=== PATIENT | male | born 1995 | race Caucasian/White ===

== ENCOUNTER 2018-09-23 13:40 | Emergency (ER) | payer MEDICAID, SELFPAY ==
[2018-09-23 13:45] VITALS: BP 119/79; PULSE 67; RESP 18; TEMP 36.7; O2SAT 97
--- NOTE | 2018-09-23 13:45 | ED.GENADUL_ITS ---
Discharge Plan Disposition Patient Disposition: HOME Condition: Stable Discharge Details Chief Complaint: Orthopedic Clinical Impression: Right wrist sprain Primary Care Provider: Collins Sandoval ED Provider: Turner Burrows Home Meds and New Rx's Prescriptions: Continued epinephrine [EpiPen 2-Erik] 0.3 MG/0.3 ML auto-injector 0.3 mg IM ONCE Qty: 1 RF: 0 ProAir HFA 8.5 GM HFA aerosol inhaler 2 puff Inhalation Q4H PRN Qty: 2 RF: 2 inhalational spacing device [Space Chamber Plus] 1 EACH spacer 1 ea Miscellaneous Q4H PRN Qty: 1 RF: 0 Discharge Instructions Instructions: Wrist Sprain (ED) Additional Instructions: if pain continues in a week see a primary care provider Stand Alone Forms: Work Release Medical Decision Making 23 yo male states he strained his right wrist by hyperextending it while lifting it 2 weeks ago. He was at work yesterday and caught a box and caused more pain to the right wrist. Denies any falls or other trauma. His work told him he needed a note to return to work so he came here. He has full rom of the wrist with anterior discomfort, no swelling, normal sensation, no snuffbox tenderness. I suspect strain, given lack of trauma and full rom doubt fx and do not feel xray indicated. Will give splint to use prn and advised no heavy lifting until pain free and if not better in a week to see a pcp Differential Diagnosis strain, sprain, contusion HPI General Mode of arrival: ambulatory . Date/Time Provider Initiated Documentation: 09/23/18 13:41 . Limitations to Documentation: no limitations . Information obtained by: patient . History of Present Illness 23 year old M presents to the emergency department with the chief complaint of right wrist pain, described as mild, with intensity rated at 4. Quality is described as aching, and is localized to the right and upper extremity. Patient reports no radiation. Patient started experiencing this week(s) (2) and it has been constant. Rest improves symptom(s), Movement worsens symptoms . Patient notes no other symptoms.. Related Data Home Medications Medication Instructions Recorded Confirmed epinephrine [EpiPen 2-Erik] 0.3 mg IM ONCE #1 pack 06/21/15 09/23/18 ProAir HFA 2 puff INHALATION Q4H PRN #2 07/01/15 09/23/18 inhaler inhalational spacing device [Space #1 07/01/15 Chamber Plus] Allergies Allergy/AdvReac Type Severity Reaction Status Date / Time venom-honey bee Allergy Intermediate Unverified 09/23/18 13:50 [bee venom (honey bee)] Review of Systems Review of Systems All systems reviewed & are unremarkable except as noted in HPI and below Constitutional Denies chills, Denies fever(s) and Denies weakness ENT Denies change in voice Cardiovascular Denies chest pain and Denies dyspnea Respiratory Denies dyspnea Gastrointestinal Denies abdominal pain, Denies nausea and Denies vomiting Genitourinary Denies dysuria Musculoskeletal Denies joint swelling Neurologic Denies weakness Psychiatric Denies depression [facility] Medical History Concussion Intermittent asthma MRSA (methicillin resistant Staphylococcus aureus) Mononucleosis Surgical History Excision, Skin Mass (~03/2009) Repair, Incomplete Circumcision Family History Mother Migraine Mental disorder Asthma Brother Mental disorder Other Lupus (systemic lupus erythematosus) Substance abuse Diabetes Alcohol abuse Essential hypertension Personal history of malignant neoplasm Heart disease Mental disorder Asthma Social History Smoking/Tobacco Use Status: Never Exam Const General: no acute distress Orientation: alert HENVA Head: normal to inspection Ears: external ears normal General nose exam: external nose normal Mouth: moist mucous membranes Eyes General: appearance normal, both eyes and all related structures Neck Neck: normal visual inspection Resp Effort & Inspection: normal respiratory effort and able to speak in complete sentences Cardio Rate: regular rate Skin General skin exam: no rashes or lesions noted Neuro General: alert and oriented x3 Extrem General: normal to inspection, full ROM and normal capillary refill Psych Mental Status: mental status grossly normal
== END 2018-09-23 14:20 | disposition home or self-care (01) ==
PROVIDERS: Emergency Provider Emergency Medicine; PCP Pediatrics
DX: S63.501A Unspecified sprain of right wrist, initial encounter (principal); X50.0XXA Overexertion from strenuous movement or load, initial encounter; Y93.B1 Activity, exercise machines primarily for muscle strengthening
CPT/HCPCS: 29125; 99283; 99282; L3908

== ENCOUNTER 2018-10-10 07:09 | Emergency (ER) | payer MEDICAID, SELFPAY ==
[2018-10-10 07:14] VITALS: BP 116/73; PULSE 61; RESP 18; TEMP 36.4; O2SAT 97
--- NOTE | 2018-10-10 08:14 | ED.GENADUL_ITS ---
Discharge Plan Disposition Patient Disposition: HOME Condition: Stable Discharge Details Chief Complaint: Orthopedic Clinical Impression: Right wrist sprain Primary Care Provider: Collins Sandoval ED Provider: Morena Ahn Home Meds and New Rx's Prescriptions: Continued epinephrine [EpiPen 2-Erik] 0.3 MG/0.3 ML auto-injector 0.3 mg IM ONCE Qty: 1 RF: 0 ProAir HFA 8.5 GM HFA aerosol inhaler 2 puff Inhalation Q4H PRN Qty: 2 RF: 2 inhalational spacing device [Space Chamber Plus] 1 EACH spacer 1 ea Miscellaneous Q4H PRN Qty: 1 RF: 0 Discharge Instructions Instructions: Wrist Sprain (ED) Additional Instructions: Rest, ice, and elevate right wrist is much as possible. Alternate Tylenol and Motrin as needed and directed for pain. Wear your wrist splint that you have at home as directed. Follow-up with your primary care doctor in 1 week for reevaluation as needed. Return to the emergency department any worsening or new concerning symptoms. Follow-up with orthopedics if your pain persists or worsens. Stand Alone Forms: Work Release Referrals: Polo Sherman MD [ [facility] STAFF PHYSICIAN] - Discharge Data Discharge Date/Time-TO BE ENTERED AT DEPARTURE: 10/10/18 08:22 Discharge Physician: Morena Ahn Medical Decision Making 23-year-old male who presents with right wrist pain after feeling a pop while pushing a box at work this morning. Patient works at [employer]. Pt has not taken anything for pain. Seen here 2 weeks ago for a R wrist sprain and states his symptoms completely resolved until new injury today. Did not receive xray at that time. Some pain with ROM but no deformity. Minimal tenderness to palpation R volar medial wrist. NV intact. No ecchymoses, edema, erythema. Pt offered motrin and xray but declined. Pt states he needs a work note. Pt advised to rest, ice, and elevate R wrist as much as possible. Pt given orthopedic follow up info if needed. Pt also referred to care management for a primary care doctor. Pt instructed to return here with any concerns. HPI General Mode of arrival: ambulatory . Date/Time Provider Initiated Documentation: 10/10/18 08:04 . Limitations to Documentation: no limitations . Information obtained by: patient . HPI Narrative: Patient is a 23-year-old male who presents with right wrist pain after pushing a box with his right hand and feeling a pop in his right ulnar wrist. Pt states he felt pain radiate from his R wrist up his R medial forearm. Patient has not yet taken anything for pain. Patient was seen here a couple weeks ago for a right wrist pain after hyperextending his wrist at work. Pt was seen in the ED at that time and was diagnosed with R wrist sprain and was discharged to home. Pt did not receive an xray at that time as not indicated by provider. Pt states his pain completely improved since then until new injury today. Pt denies any numbness or weakness. Related Data Home Medications Medication Instructions Recorded Confirmed epinephrine [EpiPen 2-Erik] 0.3 mg IM ONCE #1 pack 06/21/15 09/23/18 ProAir HFA 2 puff INHALATION Q4H PRN #2 07/01/15 09/23/18 inhaler inhalational spacing device [Space #1 07/01/15 Chamber Plus] Allergies Allergy/AdvReac Type Severity Reaction Status Date / Time venom-honey bee Allergy Intermediate Unverified 09/23/18 13:50 [bee venom (honey bee)] General Stated Complaint: Orthopedic FLORIDALMA: 4 Review of Systems Review of Systems All systems reviewed & are unremarkable except as noted in HPI and below PFSH Medical History Concussion Intermittent asthma MRSA (methicillin resistant Staphylococcus aureus) Mononucleosis Surgical History Excision, Skin Mass (~03/2009) Repair, Incomplete Circumcision Family History Mother Migraine Mental disorder Asthma Brother Mental disorder Other Lupus (systemic lupus erythematosus) Substance abuse Diabetes Alcohol abuse Essential hypertension Personal history of malignant neoplasm Heart disease Mental disorder Asthma Social History Smoking/Tobacco Use Status: Never alcohol intake: never substance use type: does not use Exam Const General: cooperative, healthy appearing and no acute distress HENMT Head: normal to inspection Mouth: oral mucosae normal Eyes General: appearance normal, both eyes and all related structures Neck Neck: normal visual inspection Resp Effort & Inspection: normal respiratory effort and able to speak in complete sentences Cardio Rate: regular rate Skin General skin exam: no rashes or lesions noted Neuro General: alert, awake and oriented x3 Motor: muscle tone normal throughout Extrem General: normal to inspection and full ROM Right upper extremity: wrist Details: normal to inspection, tenderness (minimal on R volar ulnar wrist. No R snuff box tenderness ), abnormal ROM Details: pain with active ROM during Details: with extension and with flexion, radial pulse present Details: 2+ and ulnar pulse present Details: 2+; no swelling, no unusual warmth, no abrasions, no ecchymosis, no crepitus and no deformity Psych Appearance: grossly normal Affect: normal affect Course Vital Signs Temperature 97.5 F L 10/10/18 07:14 Pulse 61 10/10/18 07:14 Respiratory Rate 18 10/10/18 07:14 Blood Pressure 116/73 10/10/18 07:14 Pulse Oximetry 97 10/10/18 07:14 Temperature 97.5 F L 10/10/18 07:14 Temperature Source Temporal Artery Scan 10/10/18 07:14 Pulse 61 10/10/18 07:14 Respiratory Rate 18 10/10/18 07:14 Respiratory Effort Non-Labored 10/10/18 07:14 Blood Pressure 116/73 10/10/18 07:14 Pulse Oximetry 97 10/10/18 07:14 Oxygen Delivery Method Room Air 10/10/18 07:14 Oxygen Flow Rate 0 10/10/18 07:14
== END 2018-10-10 08:22 | disposition home or self-care (01) ==
PROVIDERS: Emergency Provider Physician Assistant; PCP Pediatrics
DX: S63.501A Unspecified sprain of right wrist, initial encounter (principal); X50.9XXA Other and unspecified overexertion or strenuous movements or postures, initial encounter; Y99.0 Civilian activity done for income or pay
CPT/HCPCS: 99282

== ENCOUNTER 2019-11-16 14:33 | Emergency (ER) | payer MEDICAID, SELFPAY ==
[2019-11-16 14:37] VITALS: BP 132/76; PULSE 66; RESP 18; TEMP 36.6; O2SAT 96
--- NOTE | 2019-11-16 14:50 | ED.GENADUL_ITS ---
Discharge Plan Disposition Patient Disposition: HOME Condition: Improving Discharge Details Chief Complaint: Headache Clinical Impression: Headache, migraine Primary Care Provider: Collins Sandoval ED Provider: Leonardo Medeiros Home Meds and New Rx's Prescriptions: Continued epinephrine [EpiPen 2-Erik] 0.3 MG/0.3 ML auto-injector 0.3 mg IM ONCE Qty: 1 RF: 0 albuterol sulfate [ProAir HFA] 8.5 GM HFA aerosol inhaler 2 puff Inhalation Q4H PRN Qty: 2 RF: 2 (DME) inhalational spacing device [Space Chamber Plus] 1 EACH spacer 1 ea Miscellaneous Q4H PRN Qty: 1 RF: 0 Discharge Instructions Instructions: Migraine Headache (ED) Additional Instructions: Home to rest today. All, frequent sips of fluids so that you maintain hydration. You may use Tylenol 650 to 1000 mg every 6 hours, and/or ibuprofen 600 mg every 6-8 hours as needed for pain. Return if you develop a fever, vomiting, worsening headache or any other acute concerns. Stand Alone Forms: Work Release Medical Decision Making 24-year-old male with a history of migraine headache states he has had 3 headaches in 2 days time. Denies fall, injury, illness. He is well-appearing, his vital signs are normal, neurologic exam unremarkable. Patient was given 1 L fluid bolus, ketorolac and dexamethasone with near complete resolution of his headache. We discussed ongoing management techniques in an outpatient setting. He is stable and improved,. Discharge home. HPI General Mode of arrival: ambulatory . Date/Time Provider Initiated Documentation: 11/16/19 14:34 . Limitations to Documentation: no limitations . Information obtained by: patient . History of Present Illness 24 year old M presents to the emergency department with the chief complaint of Multiple headaches over 2 days, described as moderate and similar to prior episodes, Quality is described as dull and constant, and is localized to the head. Patient reports no radiation. Patient started experiencing this day(s) and it has been constant. No relieving factors improve symptom(s), No exace rbating factors reported . Patient notes headaches; denies fever/chills, loss of appetite, nausea/vomiting and syncope. Patient did receive the following treatments prior to arrival, none Related Data Home Medications Medication Instructions Recorded Confirmed epinephrine [EpiPen 2-Erik] 0.3 mg IM ONCE #1 pack 06/21/15 11/16/19 albuterol sulfate [ProAir HFA] 2 puff INHALATION Q4H PRN #2 07/01/15 11/16/19 inhaler inhalational spacing device [Space #1 07/01/15 Chamber Plus] Allergies Allergy/AdvReac Type Severity Reaction Status Date / Time venom-honey bee Allergy Intermediate Unverified 11/16/19 14:40 [bee venom (honey bee)] General Stated Complaint: Headache FLORIDALMA: 3 Review of Systems Narrative: No fall, no recent illness, denies neck pain or fever. 6 systems reviewed and otherwise negative [facility] Medical History Concussion no LOC Intermittent asthma Mononucleosis MRSA (methicillin resistant Staphylococcus aureus) Family History Mother Migraine Mental disorder anxiety/depression Asthma Brother Mental disorder anxiety/depression Other Lupus (systemic lupus erythematosus) mat cousin Substance abuse mat and pat sides Diabetes MGF, MGM, paternal side also Alcohol abuse mat and pat sides Essential hypertension mat and paternal sides Personal history of malignant neoplasm maternal and paternal Heart disease maternal side Mental disorder MGM-anxiety/depression Asthma MGF, maternal side Social History (Updated 10/10/18 @ 08:38 by Morena Ahn DO) Smoking/Tobacco Use Status: Never Alcohol Intake: never Drug use: Never Substance use type: does not use Do you feel safe in your relationship?: Yes Exam Narrative Exam Narrative: GEN: awake, alert, oriented 3. Pleasant, well groomed, interactive. HEAD: Normocephalic, atraumatic ENT: Mucous membranes moist, oropharynx unremarkable, tympanic membranes clear bilaterally, external ear exam unremarkable EYES: PERRL, EOMI NECK: Full ROM, no DEWEY, no menigismus CHEST/RESP: Nontender, clear to auscultation bilateral, no wheeze/rhonchi/rales CARDIOVASCULAR: RRR, no murmur, rub hubert. 2+ Rad pulse bilateral ABDOMEN: Soft, nontender, no mass. +Bowel sounds EXT: Full ROM, no edema, no rash Neuro: Grossly normal neurologic exam, conversant, interactive. Visual paulino intact to confrontation. Cranial nerves II through XII intact. Gait narrow based with good heel strike Psych: Speech fluent, thoughts congruent, affect normal Course Vital Signs Vital signs: Vital Signs Temperature 36.6 C 11/16/19 14:37 Pulse 66 11/16/19 14:37 Respiratory Rate 18 11/16/19 14:37 Blood Pressure 132/76 11/16/19 14:37 Pulse Oximetry 96 11/16/19 14:37 Temperature 36.6 C 11/16/19 14:37 Pulse 66 11/16/19 14:37 Respiratory Rate 18 11/16/19 14:37 Blood Pressure 132/76 11/16/19 14:37 Blood Pressure Position Sitting 11/16/19 14:37 Pulse Oximetry 96 11/16/19 14:37 Oxygen Delivery Method Room Air 11/16/19 14:37 Oxygen Flow Rate 0 11/16/19 14:37 Pain Level 6 11/16/19 14:37
[2019-11-16] MEDS: Normal Saline 1,000 ML 1000 ML IV (14:57)
[2019-11-16] MEDS: Ondansetron 4 MG/2 ML VIAL IVP (14:59)
[2019-11-16] MEDS: Ketorolac 30 MG/ML VIAL IVP (15:02)
[2019-11-16] MEDS: Dexamethasone 10 MG/ML VIAL IVP (15:03)
[2019-11-16 15:58] VITALS: BP 96/58; PULSE 59; RESP 15; TEMP 36.9; O2SAT 98
== END 2019-11-16 15:57 | disposition home or self-care (01) ==
PROVIDERS: Emergency Provider Emergency Medicine; PCP Pediatrics
DX: G43.809 Other migraine, not intractable, without status migrainosus (principal)
CPT/HCPCS: 96361; 96374; 96375; 99284; J1100; J1885; J2405

== ENCOUNTER 2023-05-23 12:09 | Emergency (ER) | payer MEDICAID, SELFPAY ==
[2023-05-23 12:34] VITALS: BP 123/69; PULSE 64; RESP 14; TEMP 37.1; O2SAT 99
[2023-05-23 15:20] LABS: Bilirubin Negative (Negative); Blood Large (Negative); Clarity Cloudy (Clear); Glucose Negative (Negative); Ketones Negative (Negative); Leukocyte Esterase Large (Negative); Nitrite Positive (Negative); Specific Gravity 1.025 (1.005-1.025); pH 6.5 (5-8)
[2023-05-23 15:28] LABS: Bacteria Many HPF (Negative); C & S Indicated? Yes; Casts Negative LPF (Negative); Crystals Negative HPF (Negative); Epithelial Cells Rare HPF (Negative); Mucus Trace (Negative); WBC >50 HPF (0-5)
[2023-05-23] MEDS: Phenazopyridine 200 MG TAB PO (16:20)
[2023-05-23] MEDS: Cephalexin 500 MG CAP PO (16:20)
[2023-05-24 13:40] LABS: Chlamydia Result Negative (Negative); GC Result Negative (Negative)
--- NOTE | 2023-06-06 16:01 | ED.GENADUL_ITS ---
Discharge Plan Disposition Patient Disposition: Home Condition: Stable Discharge Details Clinical Impression: Acute UTI ED Provider: Tierra Junior Home Meds and New Rx's Prescriptions: New phenazopyridine [Pyridium] 200 mg tablet 200 mg PO TID PRNQty: 6 0RF No Action epinephrine [EpiPen 2-Erik] 0.3 MG/0.3 ML auto-injector 0.3 mg IM ONCE Qty: 1 albuterol sulfate [ProAir HFA] 8.5 GM HFA aerosol inhaler 2 puff Inhalation Q4H PRN Qty: 2 Rx Instructions: 2 puffs with spacer every 4hr as needed (DME) inhalational spacing device [Space Chamber Plus] 1 EACH spacer 1 ea Miscellaneous Q4H PRN Qty: 1 Rx Instructions: give 2 puffs albuterol with spacer every 4hr as needed Discharge Instructions Instructions: Urinary Tract Infection in Men (ED) Stand Alone Forms: Work Release Discharge Data Discharge Date/Time-TO BE ENTERED AT DEPARTURE: 05/23/23 18:15 Discharge Physician: Tierra Junior Medical Decision Making 28 year-old male with urinary symptoms. UA concerning for infection. Discussed possible empiric treatment for STDs. Patient declines at this time. He will be started on antibiotics. Medically he does not appear to have kidney infection at this time. We did discuss indications to return. HPI General Date/Time Provider Initiated Documentation: 05/23/23 12:37 . HPI Narrative: 28-year-old male presents for evaluation of pain with urination. He states that he has had some increased urinary frequency and urgency over the last 3 days. There is some slight dysuria. He has had lower abdominal discomfort. He feels that he may have had a low-grade fever yesterday. He denies any history of UTIs. No history of kidney stones. No kidney pain or back pain. No nausea or vomiting. He is tolerating normal p.o. Denies any concern for sexually transmi tted diseases. He is monogamous with 1 partner. No chest pain or shortness of breath. No cough or cold. Related Data Home Medications Medication Instructions Recorded Confirmed epinephrine 0.3 mg/0.3 mL 0.3 mg IM ONCE ##1 06/21/15 05/23/23 injection, auto-injector (EpiPen 2-Erik) albuterol sulfate 90 mcg/actuation 2 puff inhalation Q4H PRN ##2 07/01/15 05/23/23 aerosol inhaler (ProAir HFA) inhalational spacing device (Space ##1 07/01/15 Chamber Plus) phenazopyridine 200 mg tablet 200 mg PO TID PRN 6 doses #6 tabs 05/23/23 (Pyridium) Previous Rx's Medication Instructions Recorded phenazopyridine 200 mg tablet 200 mg PO TID PRN 6 doses #6 tabs 05/23/23 (Pyridium) Allergies Allergy/AdvReac Type Severity Reaction Status Date / Time venom-honey bee Allergy Intermediate Unverified 05/23/23 12:36 [bee venom (honey bee)] General Stated Complaint: Urinary FLORIDALMA: 3 Review of Systems Narrative: Remainder of review of systems are negative except for as noted in the HPI x 10. PFSH All Active Problems Headache, migraine (Chronic) Acute UTI (Acute) Medical History Concussion no LOC Intermittent asthma Mononucleosis MRSA (methicillin resistant Staphylococcus aureus) Surgical History Excision, Skin Mass (~03/2009) excision atypical spitzoid melanoma Repair, Incomplete Circumcision Family History Mother Migraine Mental disorder anxiety/depression Asthma Brother Mental disorder anxiety/depression Other Lupus (systemic lupus erythematosus) mat cousin Substance abuse mat and pat sides Diabetes MGF, MGM, paternal side also Alcohol abuse mat and pat sides Essential hypertension mat and paternal sides Personal history of malignant neoplasm maternal and paternal Heart disease maternal side Mental disorder MGM-anxiety/depression Asthma MGF, maternal side Social History (Updated 10/10/18 @ 08:38 by Morena Ahn DO) Smoking/Tobacco Use Status: Never Smoking risk assessment performed?: Yes Alcohol Intake: never Drug use: Occasionally Substance use type: marijuana Do you feel safe at home: Yes Do you feel safe in your relationship?: Yes Exam Narrative Exam Narrative: General: Nontoxic, no respiratory distress, comfortable HEENT: Normocephalic, atraumatic, lids and lashes normal, PERRL, EOMI, anicteric sclera, no conjunctival injection, moist oral mucosa Cards: Regular rate and rhythm, S1S2, no murmurs rubs or gallops Lungs: Good air entry, clear to auscultation bilaterally. No wheezes, rales, rhonchi or retractions Abdomen: Soft, nontender, nondistended, normal bowel sounds, no rebound or guarding, no peritoneal signs, no CVAT Musculoskeletal: Full range of motion of arms and legs, no tenderness to palpation. No clubbing, cyanosis, or edema Neurological: Appropriate for age, strength normal Psych: Alert and oriented Skin: No petechiae, no lesions, warm and dry Course Vital Signs Vital signs: Vital Signs Temperature 37.1 C 05/23/23 12:34 Pulse 64 05/23/23 12:34 Respiratory Rate 14 05/23/23 12:34 Blood Pressure 123/69 05/23/23 12:34 Pulse Oximetry 99 05/23/23 12:34 Temperature 37.1 C 05/23/23 12:34 Temperature Source Oral 05/23/23 12:34 Pulse 64 05/23/23 12:34 Respiratory Rate 14 05/23/23 12:34 Respiratory Effort Normal 05/23/23 15:23 Blood Pressure 123/69 05/23/23 12:34 Blood Pressure Position Sitting 05/23/23 12:34 Pulse Oximetry 99 05/23/23 12:34 Oxygen Delivery Method Room Air 05/23/23 12:34 Oxygen Flow Rate 0 05/23/23 12:34 Pain Level 3 05/23/23 12:34 Lab/Test Results Lab/Test Results: 05/23/23 15:00 Urine - Reflex from Ua Urine Culture - Final Escherichia coli Laboratory Tests Range/Units 05/23/23 05/23/23 15:00 15:28 Urine Color (Yellow) Yellow Urine Clarity (Clear) Cloudy Urine pH (5-8) 6.5 Ur Specific [place] (1.005-1.025) 1.025 Urine Protein (Negative) mg/dL >=300 H Urine Ketones (Negative) mg/dL Negative Urine Blood (Negative) Large H Urine Nitrite (Negative) Positive H Urine Bilirubin (Negative) Negative Urine Urobilinogen (Up to 0.2) mg/dL 2.0 H Ur Leukocyte Esterase (Negative) Large H Urine RBC (0-2) HPF 10-20 H Urine WBC (0-5) HPF >50 H Ur Epithelial Cells (Negative) HPF Rare Urine Crystals (Negative) HPF Negative Urine Bacteria (Negative) HPF Many Urine Casts (Negative) LPF Negative Urine Mucus (Negative) Trace Ur Culture Indicated? Yes Urine Glucose (Negative) mg/dL Negative Chlamydia DNA Probe (Negative) Negative Chlamydia/GC DNA Source Not Applicable N.gonorrhoeae DNA Probe (Negative) Negative
== END 2023-05-23 18:15 | disposition home or self-care (01) ==
PROVIDERS: Emergency Provider Emergency Medicine Emergency Medical Services
DX: N39.0 Urinary tract infection, site not specified (principal)
CPT/HCPCS: 87077; 87491; 87591; 99283; 81003; 81015; 87086; 87186; 99284

== ENCOUNTER 2023-06-18 09:18 | Emergency (ER) | payer MEDICAID, SELFPAY ==
[2023-06-18 09:19] VITALS: BP 107/40; PULSE 70; RESP 15; TEMP 36.6; O2SAT 97
--- NOTE | 2023-06-18 09:23 | ED.GENADUL_ITS ---
Discharge Plan Disposition Patient Disposition: Home Discharge Details Clinical Impression: Dysuria, Hematuria, STI (sexually transmitted infection) Primary Care Provider: None,None ED Provider: Sandy Logan Home Meds and New Rx's Prescriptions: New doxycycline hyclate 100 mg tablet 100 mg PO BID Qty: 13 0RF Rx Instructions: Take with food take an txva-mvo-clrwyel probiotic or eat foods with probiotics in them phenazopyridine [Pyridium] 200 mg tablet 200 mg PO TID Qty: 6 0RF No Action epinephrine [EpiPen 2-Erik] 0.3 MG/0.3 ML auto-injector 0.3 mg IM ONCE Qty: 1 albuterol sulfate [ProAir HFA] 8.5 GM HFA aerosol inhaler 2 puff Inhalation Q4H PRN Qty: 2 Rx Instructions: 2 puffs with spacer every 4hr as needed (DME) Space Chamber Plus 1 EACH spacer 1 ea Miscellaneous Q4H PRN Qty: 1 Rx Instructions: give 2 puffs albuterol with spacer every 4hr as needed phenazopyridine [Pyridium] 200 mg tablet 200 mg PO TID PRNQty: 6 0RF Discharge Instructions Instructions: Sexually Transmitted Diseases (ED), Safe Sex Practices (ED), Hematuria (ED), Dysuria (ED) Additional Instructions: 1. You should be contacted by the urologist for follow-up. Tell them that we did send a test for gonorrhea and chlamydia and treated you with a shot and 7 days of doxycycline. Tell them that a culture and urinalysis was also done. 2. Start doxycycline 100 mg every 12 hours for 7 days. We recommend he take an vzit-cos-darbwui probiotic or eat foods with probiotics in them while taking this medication. You should also take it on a full stomach and avoid direct sunlight. 3. Return here for any new or worrisome symptoms such as inability to urinate abdominal pain, fever chills or any concerns. Discharge Data Discharge Date/Time-TO BE ENTERED AT DEPARTURE: 06/18/23 11:45 Discharge Physician: Sandy Logan Medical Decision Making This is a healthy 28-year-old male who was recently treated for UTI with Keflex who presents with dysuria. At his age I am concerned that he could have an STI most likely chlamydia which is the most common STI. He has not had a discharge or lesions and tells me that he has had protected intercourse. My plan is to obtain a urine for GC and chlamydia as well as another urinalysis. If his urine is positive I will treat him for an STI with Rocephin and doxycycline and have him follow-up with urology. He has no evidence of pharyngitis. I have very discussed with him the risk of HIV and hepatitis if he does not fact have an STI. His exam is reassuring. He has no lesions, testicular tenderness or hernias. He has no abdominal pain he is not febrile and appears nontoxic and well. We will likely be discharging him home with outpatient follow-up with urology or primary care Differential Diagnosis Differential Diagnosis: UTI, STI Medical Records Medical records reviewed: Yes I reviewed the patient's medical records. Lab Data Lab results reviewed: Yes I reviewed the patient's lab results. HPI General Date/Time Provider Initiated Documentation: 06/18/23 09:23 . Limitations to Documentation: no limitations . Information obtained by: patient, family, RN notes reviewed and old records reviewed . HPI Narrative: Time seen was 9:32 AM in bed 5. Patient is a 28-year-old male who presents with a chief complaint of recurrent symptoms of a urinary tract infection. In addition, he has also had hematuria which began several days after his symptoms recurred. He tells me he was seen here and treated for UTI. According to old records he was given Keflex. It does not appear that he had a GC or chlamydia done. He did not complete his full course of antibiotics because he left from home when he went away on vacation. He presents now with dysuria, urgency and frequency without fever or chills. Patient denies any prior history of STI. He denies any rash or discharge. He denies any back pain or fever. He tells me that he has a single partner and uses condoms despite the fact that he has been with her for the past 6 years. He endorses some mild discomfort over his bladder which he describes as a warm feeling associated with dysuria, associated with frequency. He tells me he was given Pyridium along with the cephalexin which did help his symptoms. He denies any other aggravating or alleviating factors other than urination aggravates the discomfort. He denies any abdominal pain fever or chills. He denies any testicular pain, swelling or nausea vomiting or diarrhea. He denies any back pain. No numbness tingling or weakness. The patient does not take therapeutic anticoagulants Related Data Home Medications Medication Instructions Recorded Confirmed epinephrine 0.3 mg/0.3 mL 0.3 mg IM ONCE ##1 06/21/06/18/23 injection, auto-injector (EpiPen 2-Erik) albuterol sulfate 90 mcg/actuation 2 puff inhalation Q4H PRN ##2 07/01/06/18/23 aerosol inhaler (ProAir HFA) inhalational spacing device (Space ##1 07/01/06/18/23 Chamber Plus) phenazopyridine 200 mg tablet 200 mg PO TID PRN 6 doses #6 tabs 05/23/23 (Pyridium) doxycycline hyclate 100 mg tablet 100 mg PO BID #13 tabs 06/18/23 phenazopyridine 200 mg tablet 200 mg PO TID 6 doses #6 tabs 06/18/23 (Pyridium) Previous Rx's Medication Instructions Recorded phenazopyridine 200 mg tablet 200 mg PO TID PRN 6 doses #6 tabs 05/23/23 (Pyridium) doxycycline hyclate 100 mg tablet 100 mg PO BID #13 tabs 06/18/23 phenazopyridine 200 mg tablet 200 mg PO TID 6 doses #6 tabs 06/18/23 (Pyridium) Allergies Allergy/AdvReac Type Severity Reaction Status Date / Time venom-honey bee Allergy Intermediate Unverified 06/18/23 09:25 [bee venom (honey bee)] General FLORIDALMA: 3 Review of Systems Narrative: see hpi Genitourinary Genitourinary: Denies hematospermia, Reports hematuria, Denies difficulty urinating, Denies difficulty with ejaculations, Denies genital lesions, Reports dysuria, Denies painful ejaculations, Denies penile discharge, Denies scrotal swelling, Denies testicular mass, Denies testicular pain, Reports urinary frequency and Reports urinary urgency Comments: Patient's symptoms began before the hematuria. It was difficult for him to assess the amount of blood in the urine Hematologic/Lymphatic Hematologic/Lymphatic: Denies easy bleeding, Denies easy bruising and Denies lymphadenopathy Allergic/Immunologic Comments: Per nursing note PFSH All Active Problems (Updated 06/18/23 @ 11:25 by Sandy Logan MD) Headache, migraine (Chronic) Acute UTI (Acute) Dysuria (Acute) Hematuria (Acute) STI (sexually transmitted infection) (Acute) Medical History (Updated 06/18/23 @ 11:25 by Sandy Logan MD) Concussion no LOC Intermittent asthma Mononucleosis MRSA (methicillin resistant Staphylococcus aureus) Surgical History Excision, Skin Mass (~03/2009) excision atypical spitzoid melanoma Repair, Incomplete Circumcision Family History Mother Migraine Mental disorder anxiety/depression Asthma Brother Mental disorder anxiety/depression Other Lupus (systemic lupus erythematosus) mat cousin Substance abuse mat and pat sides Diabetes MGF, MGM, paternal side also Alcohol abuse mat and pat sides Essential hypertension mat and paternal sides Personal history of malignant neoplasm maternal and paternal Heart disease maternal side Mental disorder MGM-anxiety/depression Asthma MGF, maternal side Social History Smoking/Tobacco Use Status: Never Smoking risk assessment performed?: Yes Alcohol Intake: never Drug use: Occasionally Substance use type: marijuana Do you feel safe at home: Yes Do you feel safe in your relationship?: Yes Exam Narrative Exam Narrative: His vital signs are within normal limits for his age Const General: cooperative, healthy appearing, comfortable, no acute distress, well developed, well groomed and well hydrated Nutritional Appearance: average body habitus and well nourished Orientation: alert, awake and oriented x3 HENMT Head: normal to inspection, normocephalic and atraumatic Ears: hearing grossly normal bilaterally and external ears normal General nose exam: external nose normal, nares normal and no nasal discharge Face and sinus: normal facial exam, sinuses nontender and face symmetric Mouth: oral mucosae normal, lip normal, tongue normal, oropharynx normal, moist mucous membranes and other (Normal phonation. The patient is handling secretions.) Throat: posterior oropharynx normal, uvula midline and normal posterior oropharynx Eyes General: appearance normal, both eyes and all related structures Eyelids: eyelids normal Conjunctivae: conjunctivae normal Sclera: sclerae normal Cornea: corneas normal Pupils: PERRL EOM: EOM intact bilaterally and No nystagmus Neck Neck: normal visual inspection, full ROM, no lymphadenopathy, no meningeal signs, trachea midline and supple Lymphatic: no lymphadenopathy noted Chest Chest: normal inspection of the chest Resp Effort & Inspection: normal respiratory effort, able to speak in complete sentences, no audible wheezes, no nasal flaring, no respiratory distress, no retractions, no stridor, not tachypneic, no tracheal deviation, no use of accessory muscles, No prolonged expiratory phase and other (Normal inspiratory to expiratory ratio.) Auscultation: clear to auscultation bilaterally, no rales, no rhonchi, no wheezes and no rubs Tactile Fremitus: tactile fremitus absent Cardio Jugular venous pressure: no JVD Palpation: normal PMI Rate: regular rate Rhythm: regular rhythm Heart Sounds: S1 normal, S2 normal, no gallops, no murmurs and no rubs GI Inspection: normal to inspection and non-distended Palpation: soft, no hepatosplenomegaly, no guarding and nontender Percussion: normal to percussion Auscultation: normal bowel sounds General: No CVA tenderness Male General Exam: Yes normal external exam, No hernia, No inguinal lymphadenopathy, No lacerations and No lesions Penis: normal penis, no condylomata, no ecchymosis, not edematous, not erythematous, no masses, no nodules, no paraphimosis, no phimosis, no pustules, no swelling, no ulcerations, no vesicles and other (The patient is circumcised) Meatus: meatus normal and no meatla discharge Scrotum: scrotum normal, cremasteric reflex present, no hydroceles, no inguinal hernias, no masses, no scrotal swelling, no ulcerations and no varicoceles Testes: normal, testicular lie normal, epididymides normal, no blue dot sign, no epididymal induration, no epidiymal masses, no epidiymal tenderness, no testicular mass, no testicular swelling, no testicular tenderness, normal testicular lie and No testicular atrophy Back/Spine/Pelvis Back: no CVA tenderness and No back tenderness Cervical Spine: normal cervical lordosis, cervical ROM normal, No cervical mus cular tenderness, No pain with cervical ROM, No cervical spinal tenderness and No step off deformity Thoracic/Lumbar Spine: thoracic and lumbar spine normal to inspection, No t horacic spinal tenderness and No lumbar spinal tenderness Pelvis: no pain with anterior-posterior compression and no pain with lateral compression Skin General skin exam: no rashes or lesions noted, turgor normal, no petechiae, no purpura and other (Skin is normal for ethnicity.) Lesions: no lesions Rashes: no rashes Trauma: no lacerations or abrasions Neuro General: patient alert, patient awake, patient oriented x3, moves all extremities, no meningeal signs, no focal motor deficits and CN's II-XI intact bilaterally Cranial Nerves: CN's II-XI intact bilaterally, PERRL, accommodation normal, EOM intact bilaterally, no nystagmus, facial strength normal, tongue midline, hearing normal and no nystagmus Cognition: normal cognition Speech: speech normal Gait: normal gait Motor: muscle tone normal throughout and strength 5/5 throughout Sensory Exam: no sensory deficits noted Extrem General: normal to inspection, full ROM, capillary refill normal, no clubbing, cyanosis or edema and no calf tenderness Psych Appearance: grossly normal Affect: normal affect Attitude: cooperative Thought Process: normal Thought Content: normal Insight: insight good Judgment: judgment good Other: The patient appears to have capacity make medical decisions.
--- NOTE | 2023-06-18 11:21 | NUR.NOTE ---
Pt is being referred to Urology due to Dysuria and Hematuria. It is requested to have an appt for their next available appt.Nursing Note:
[2023-06-18] MEDS: Doxycycline Hyclate 100 MG CAP PO (11:44)
[2023-06-18] MEDS: cefTRIAXone 500 MG VIAL IM (11:44)
[2023-06-18 12:08] LABS: Bilirubin Negative (Negative); Blood Large (Negative); Clarity Sl Cloudy (Clear); Glucose Negative (Negative); Ketones Negative (Negative); Leukocyte Esterase Moderate (Negative); Nitrite Negative (Negative); Specific Gravity 1.025 (1.005-1.025); Urobilinogen 0.2 mg/dL (Up to 0.2)
[2023-06-18 12:13] LABS: Bacteria Few HPF (Negative); C & S Indicated? C&S Done As Ordered; Casts Negative LPF (Negative); Crystals Negative HPF (Negative); Epithelial Cells Few HPF (Negative); Mucus Negative (Negative); RBC >50 HPF (0-2); WBC 20-50 HPF (0-5)
[2023-06-19 13:28] LABS: Chlamydia Result Negative (Negative); GC Result Negative (Negative)
== END 2023-06-18 11:45 | disposition home or self-care (01) ==
PROVIDERS: Emergency Provider Emergency Medicine Emergency Medical Services
DX: R31.9 Hematuria, unspecified (principal); R30.0 Dysuria; Z11.3 Encounter for screening for infections with a predominantly sexual mode of transmission
CPT/HCPCS: 87491; 87591; 99283; 81003; 81015; 87086; J0696

== ENCOUNTER 2024-07-16 17:35 | Outpatient (REF) | payer MEDICAID, SELFPAY ==
[2024-07-16 17:54] LABS: Bacteria Rare HPF (Negative); C & S Indicated? C&S Done As Ordered; Casts Negative LPF (Negative); Crystals Negative HPF (Negative); Epithelial Cells Rare HPF (Negative); Mucus Negative (Negative); RBC 0-2 HPF (0-2); WBC 0-2 HPF (0-5)
== END 2024-07-16 17:36 | disposition home or self-care (01) ==
LOC: LBN 17:35
PROVIDERS: Visit Provider Physician Assistant Medical
DX: N50.811 Right testicular pain (principal); R82.89 Other abnormal findings on cytological and histological examination of urine
CPT/HCPCS: 81015; 87086

== ENCOUNTER 2024-07-17 01:16 | Outpatient (CLI) | payer MEDICAID, SELFPAY ==
--- NOTE | 2024-07-17 | DI.US_ITS ---
Exam(s) US SOFT TISSUE EXTREMITY EXAM: US SOFT TISSUE EXTREMITY CLINICAL HISTORY: MASS OF SOFT TISSUE ANT LT THIGH,R22.9. TECHNIQUE: Ultrasound was performed of the area of concern left mid thigh COMPARISON: No exams were available for comparison FINDINGS: There is a well-defined subcutaneous lesion at the site of clinical concern which has appearance of a probable lipoma, this measuring 3.1 x 1.1 x 2.7 cm. This is relatively avascular. No abnormal fluid collections evident in this region IMPRESSION: There is a 3.1 x 1.1 x 2.7 cm finding corresponding to the palpable lump which have the appearance of a probable benign lipoma. Recommend repeat scanning in 6 months to ensure stability, earlier if cli nically indicated. DATA REPOSITORY:
== END 2024-07-17 01:36 ==
LOC: DI 01:16
PROVIDERS: Visit Provider Physician Assistant Medical
DX: R22.42 Localized swelling, mass and lump, left lower limb (principal)
CPT/HCPCS: 76881

== ENCOUNTER 2024-10-14 10:55 | Outpatient (REF) | payer MEDICAID, SELFPAY ==
[2024-10-15 12:11] LABS: Chlamydia Result Negative (Negative); GC Result Negative (Negative)
== END 2024-10-14 10:56 | disposition home or self-care (01) ==
LOC: LBN 10:55
PROVIDERS: Visit Provider Physician Assistant
DX: R30.0 Dysuria (principal)
CPT/HCPCS: 87077; 87491; 87591; 87086

== ENCOUNTER 2024-11-06 00:23 | Outpatient (CLI) | payer MEDICAID, SELFPAY ==
[2024-11-06 08:56] LABS: Abs Immature Grans 0.02 10^3/uL (0.0-0.06); Absolute Basophil Count 0.02 10^3/uL (0.0-0.2); Absolute Eosinophil Count 0.11 10^3/uL (0.0-0.7); Absolute Lymphocyte Count 1.58 10^3/uL (1.2-3.4); Absolute Monocyte Count 0.46 10^3/uL (0.1-0.8); Basophils % 0.4 %; Eosinophils % 2.1 %; HCT 39.3 % (40.0-50.0); HGB 13.8 g/dL (13.5-17.5); Immature Grans % 0.4 %; Lymphocytes % 29.9 %; MCH 30.1 pg (27.0-33.0); MCHC 35.1 % (32.0-36.0); MCV 86 fL (80-95); MPV 10.1 fL (8.0-11.0); Monocytes % 8.7 %; Neutrophils % 58.5 %; Platelet Count 185 10^3/uL (130-400); RBC 4.58 10^6/uL (4.36-5.78); RDW 11.6 % (11.8-14.1); RDW-SD 35.5 fL; WBC 5.29 10^3/uL (4.4-10.8)
[2024-11-06 09:23] LABS: ALT 27 U/L (16-63); AST 20 U/L (15-37); Alkaline Phosphatase 62 U/L (46-116); Anion Gap 9.9 mmol/L (3-11); BUN 18 mg/dL (7-18); Bilirubin, Total 0.63 mg/dL (0.2-1.0); CO2 27.1 mmol/L (21.0-32.0); CREATININE 1.2 mg/dL (0.70-1.30); Calcium 9.3 mg/dL (8.5-10.1); Chloride 107 mmol/L (98-107); Glucose 92 mg/dL (74-106); Sodium 144 mmol/L (136-145); TSH 3.37 uIU/mL (0.36-3.74); Total Protein 7.3 g/dL (6.4-8.2)
[2024-11-06] MEDS: Omnipaque 350 MG/ML 500 ML BTL-Imaging package 100 ML IJ (09:32)
[2024-11-06] MEDS: Normal Saline - Diluent 50 ML VIAL IJ ×2 (09:38→09:39)
--- NOTE | 2024-11-06 09:43 | DI.CT_ITS ---
Exam(s) CT ABDOMEN PELVIS WO/W EXAM: CT ABDOMEN PELVIS WO/W CLINICAL HISTORY: hematuria evaluation,dysuria,r30.0,r31.9 TECHNIQUE: Imaging Protocol: Axial computed tomography images with coronal and sagittal reformatted images were created and reviewed. CONTRAST MATERIAL: Intravenous: Omnipaque 350 Contrast volume:100 mL Oral: No COMPARISON: No exams were available for comparison FINDINGS: ABDOMEN: Lung Bases: No acute abnormality. Liver: Normal density. No measurable mass. Portal, Superior Mesenteric, and Splenic Veins: Unremarkable. Gallbladder and Biliary Tract: No radiodense calculus or dilation. Pancreas: Normal density, no abnormal calcifications or inflammatory process. Spleen: Normal. Adrenals: No masses seen. Kidneys: Normal size, contour and axis. No radiodense stones or obstructive uropathy. No masses seen. Abdominal Aorta: Abdominal portion non-dilated. Bowel: No obstruction or bowel wall thickening. There is no evidence of appendicitis. There is a dive rticulum arising from the 3rd portion of the duodenum. Peritoneal Cavity: No ascites, collection or mesenteric inflammatory response. No free air. Lymph Nodes: Within normal limits. Bones: Within normal limits for the patient's age. Soft Tissues: Unremarkable. PELVIS: Bladder: There is a 2.6 cm diverticulum arising from the right aspect of the urinary bladder. There i s mild enhancement of the following contrast administration and mild inflammatory stranding surroundi ng the diverticulum. The findings are suggestive of inflammatory/infectious process. Reproductive Organs: Unremarkable as visualized. Lymph Nodes: Within normal limits. Bones: Within normal limits for the patient's age. IMPRESSION: 1. Right-sided 2.6 cm urinary bladder diverticulum with surrounding inflammation suspicious for bladd er diverticulitis. 2. No evidence of nephrolithiasis or hydronephrosis. RADIATION DOSE DELIVERED: 1,203.34mGy.cm Total DLP 1,203.34mGy.cm Total DLP DATA REPOSITORY: All CT scans at this facility are submitted to the National Radiology Data Registry (NRDR) Dose Index Registry (DIR) with the [employer] ([employer]). RADIATION OPTIMIZATION: All CT scans at this facility use at least one of these dose optimization te chniques: automated exposure control; mA and/or kV adjustment per patient size (includes targeted exa ms where dose is matched to clinical indication); or iterative reconstruction.
== END 2024-11-06 00:43 ==
LOC: DI 00:23
PROVIDERS: Visit Provider Urology
DX: R30.0 Dysuria (principal); R31.9 Hematuria, unspecified; G43.909 Migraine, unspecified, not intractable, without status migrainosus
CPT/HCPCS: 36415; 80053; 74178; 84443; 85025

== ENCOUNTER 2024-11-09 17:33 | Emergency (ER) | payer MEDICAID, SELFPAY ==
[2024-11-09 17:45] VITALS: BP 119/78; PULSE 102; RESP 16; TEMP 38.7; O2SAT 95
--- NOTE | 2024-11-09 18:00 | ED.GENADUL_ITS ---
Discharge Plan Disposition Patient Disposition: Home Condition: Stable Discharge Details Clinical Impression: Upper respiratory infection Primary Care Provider: Unknown,Unknown ED Provider: Stacy Salinas Home Meds and New Rx's Prescriptions: No Action epinephrine [EpiPen 2-Erik] 0.3 MG/0.3 ML auto-injector 0.3 mg IM ONCE Qty: 1 albuterol sulfate [ProAir HFA] 8.5 GM HFA aerosol inhaler 2 puff Inhalation Q4H PRN Qty: 2 Rx Instructions: 2 puffs with spacer every 4hr as needed (DME) Space Chamber Plus 1 EACH spacer 1 ea Miscellaneous Q4H PRN Qty: 1 Rx Instructions: give 2 puffs albuterol with spacer every 4hr as needed Discharge Instructions Instructions: Viral Upper Respiratory Infection, Adult (DC) Additional Instructions: Your symptoms today are most consistent with a viral illness. Please stay well hydrated, drinking plenty of fluids throughout the day. You may use ibuprofen 600 mg every 8 hours and tylenol 650 mg every 8 hours as needed for fever /chills or body aches. Get plenty of rest. Practice good handwashing and wear a mask in public if you are coughing to avoid spreading illness to others. Return to emergency care if you develop difficulty breathing, chest pains, worsening of cough or fever after initial improvement, or if you are very worried and need to be rechecked again immediately. Stand Alone Forms: Work Release HPI General Date/Time Provider Initiated Documentation: 11/09/24 18:00 . HPI Narrative: Marko is a 29 year old male who presents to the emergency department today for evaluation of viral symptoms. He reports he started feeling unwell 3 days ago, with subjective fever/chills, headache, feeling of fullness in his head and ears, sore throat, cough. Denies chest pain, difficulty breathing, nausea/vomiting, abdominal pain, change in bowel or bladder function. He has been exposed to multiple ill contacts.. Past medical history is significant for mild intermittent asthma. Physical exam reassuring. Marko is alert and oriented, no acute distress. Easy work of breathing, lung sounds clear bilaterally. Normal heart sounds. Moist mucous membranes, no oropharyngeal erythema/exudate or tonsillar hypertrophy. TMs pearly ribeiro, translucent. No protrusion of ear or pain manipulation of pinna. History and presentation consistent with viral illness. No red flags concerning for superimposed bacterial infection such as pneumonia or other serious systemic illness requiring diagnostic imaging or blood work at this time. I independently interpreted the following tests: COVID/flu negative. Strep negative. Reviewed discharge instructions with patient, including symptomatic management and red flags indicating need for return to emergency care Related Data Home Medications ?Medication ?Instructions ?Recorded ?Confirmed epinephrine 0.3 mg/0.3 mL 0.3 mg IM ONCE ##1 06/21/15 11/09/24 injection, auto-injector (EpiPen 2-Erik) albuterol sulfate 90 mcg/actuation 2 puff inhalation Q4H PRN ##2 07/01/15 11/09/24 aerosol inhaler (ProAir HFA) inhalational spacing device (Space ##1 07/01/15 11/09/24 Chamber Plus) Allergies Allergy/AdvReac Type Severity Reaction Status Date / Time venom-honey bee (bee venom Allergy Intermediate Anaphylaxis Unverified 11/09/24 17:49 (honey bee)) General Stated Complaint: Sorethroat FLORIDALMA: 4 Review of Systems Narrative: see HPI Exam Const General: cooperative, healthy appearing, comfortable, no acute distress, well developed, well groomed and anxious Nutritional Appearance: average body habitus and well nourished Orientation: alert and oriented x3 HENMT Head: normal to inspection Ears: hearing grossly normal bilaterally, external ears normal, TM's normal bilaterally and EAC's normal General nose exam: external nose normal Face and sinus: normal facial exam Mouth: oral mucosae normal, oropharynx normal and moist mucous membranes Throat: posterior oropharynx normal Neck Neck: normal visual inspection, full ROM and no lymphadenopathy Resp Effort & Inspection: normal respiratory effort and able to speak in complete s entences Auscultation: clear to auscultation bilaterally Cardio Rate: regular rate Rhythm: regular rhythm Skin General skin exam: no rashes or lesions noted Course Vital Signs Vital signs: Vital Signs Temperature 38.7 C H 11/09/24 17:45 Pulse 102 H 11/09/24 17:45 Respiratory Rate 16 11/09/24 17:45 Blood Pressure 119/78 11/09/24 17:45 Pulse Oximetry 95 11/09/24 17:45 Temperature 38.7 C H 11/09/24 17:45 Temperature Source Oral 11/09/24 17:45 Pulse 102 H 11/09/24 17:45 Respiratory Rate 16 11/09/24 17:45 Blood Pressure 119/78 11/09/24 17:45 Blood Pressure Position Sitting 11/09/24 17:45 Pulse Oximetry 95 11/09/24 17:45 Oxygen Delivery Method Room Air 11/09/24 17:45 Oxygen Flow Rate 0 11/09/24 17:45 Pain Level 7 11/09/24 17:45 Medical Decision Making Quality:SDOH Health Related Social Needs: No Data to Display PFSH All Active Problems (Updated 11/09/24 @ 18:41 by Stacy Kaur) Upper respiratory infection (Acute) Bladder diverticulum (Acute) Mass of soft tissue (Acute) Testicular pain (Acute) Headache, migraine (Chronic) Medical History (Updated 11/09/24 @ 18:41 by Stacy Kaur) Intermittent asthma MRSA (methicillin resistant Staphylococcus aureus) Concussion no LOC Mononucleosis Surgical History Repair, Incomplete Circumcision Excision, Skin Mass (~03/2009) excision atypical spitzoid melanoma Family History Mother Migraine Mental disorder anxiety/depression Asthma Brother Mental disorder anxiety/depression Other Lupus (systemic lupus erythematosus) mat cousin Substance abuse mat and pat sides Diabetes MGF, MGM, paternal side also Alcohol abuse mat and pat sides Essential hypertension mat and paternal sides Personal history of malignant neoplasm maternal and paternal Heart disease maternal side Mental disorder MGM-anxiety/depression Asthma MGF, maternal side Social History Smoking/Tobacco Use Status: Never Smoking risk assessment performed?: Yes Alcohol Intake: never Drug use: Occasionally Substance use type: marijuana Do you feel safe at home: Yes Do you feel safe in your relationship?: Yes
[2024-11-09 18:42] VITALS: BP 119/78; PULSE 102; RESP 16; TEMP 38.7; O2SAT 95
== END 2024-11-09 18:52 | disposition home or self-care (01) ==
PROVIDERS: Emergency Provider Nurse Practitioner Family
DX: J06.9 Acute upper respiratory infection, unspecified (principal)
CPT/HCPCS: 87426; 87880; 99283; 87081

== ENCOUNTER 2024-12-10 06:06 | Day surgery (SDC) | payer MEDICAID, SELFPAY ==
[2024-12-10] VITALS (20 sets, daily range): BP systolic 90–108; BP diastolic 37–72; PULSE 39–59; RESP 11–16; TEMP 35.9–36.4; O2SAT 98–100; BMI 26.2
[2024-12-10] MEDS: Lactated Ringers 1,000 ML 80 ML IV (06:42)
--- NOTE | 2024-12-10 06:55 | W.PM.HP.N ---
Date of service: 12/10/24 Time of Service: 06:56 Assessment and Plan Assessment and plan (1) Bladder diverticulum: Status: Acute (2) Lower urinary tract symptoms (LUTS): Status: Acute Assessment and plan: He has had at least one documented urinary tract infection and microscopic hematuria. We did not identify any upper tract disease. We are not certain if his imaging findings are related to bladder outlet obstruction or a congenital bladder diverticulum. We would do a cystoscopy to evaluate his lower urinary tract and address any strictures that we might identify. The cystoscopy will also complete his hematuria workup. History of Present Illness History of Present Illness Chief Complaint: Lower urinary tract symptoms Narrative: This is a 29-year-old gentleman who was referred by the providers at urgent care for dysuria. He actually had been referred to us a year or 2 ago when he was seen in the emergency room. We recommended that he get established with a primary care provider and we did not actually see him in the office. At that time, he had a urine culture that was positive for E. coli. He still has not established with a primary care provider. He was referred back to us after a recent visit at urgent care. At the time, he was having urinary frequency, dysuria and some blood in his urine. He was tested for urinary tract infection and STDs, but both cultures showed no bacterial growth. We arranged a CT urogram which showed no hydronephrosis, no kidney stones and no renal masses. He did have a bladder diverticulum. He presents now for cystoscopy. He has no known neurologic diagnoses, but he does complain of occasional numbness and tingling in the left hand and the left leg. He has never had any type of urologic surgery. Review of Systems Narrative: No fevers or chills No vision change or dysphasia No diabetes or thyroid History of asthma without need for inhalers recently. No shortness of breath, cough or hemoptysis No chest pain or palpitations No nausea, vomiting, hepatitis, ulcers, jaundice Migraine headaches. No seizures, strokes or peripheral neuropathy No bleeding disorders or anemia No gout PFSH All Active Problems (Updated 12/10/24 @ 06:56 by Chester Montes De Oca MD) Lower urinary tract symptoms (LUTS) (Acute) Bladder diverticulum (Acute) Mass of soft tissue (Acute) Testicular pain (Acute) Headache, migraine (Chronic) Medical History (Updated 12/10/24 @ 06:56 by Chester Montes De Oca MD) Intermittent asthma MRSA (methicillin resistant Staphylococcus aureus) Concussion no LOC Mononucleosis Surgical History Repair, Incomplete Circumcision Excision, Skin Mass (~03/2009) excision atypical spitzoid melanoma Family History Mother Migraine Mental disorder anxiety/depression Asthma Brother Mental disorder anxiety/depression Other Lupus (systemic lupus erythematosus) mat cousin Substance abuse mat and pat sides Diabetes MGF, MGM, paternal side also Alcohol abuse mat and pat sides Essential hypertension mat and paternal sides Personal history of malignant neoplasm maternal and paternal Heart disease maternal side Mental disorder MGM-anxiety/depression Asthma MGF, maternal side Social History Smoking/Tobacco Use Status: Never Smoking risk assessment performed?: Yes Alcohol Intake: current Alcohol Intake frequency: a few times a month Drug use: Occasionally Substance use type: marijuana Details: denies use last 24 hours Housing: apartment Do you feel safe at home: Yes Do you feel safe in your relationship?: Yes Meds Allergies and Home Medications Allergies Allergy/AdvReac Type Severity Reaction Status Date / Time venom-honey bee (bee venom Allergy Intermediate Anaphylaxis Verified 12/10/24 06:20 (honey bee)) Home Medications ?Medication ?Instructions ?Recorded ?Confirmed ?Type epinephrine 0.3 mg/0.3 mL 0.3 mg IM ONCE ##1 06/21/15 12/10/24 History injection, auto-injector (EpiPen 2-Erik) albuterol sulfate 90 mcg/actuation 2 puff inhalation Q4H PRN ##2 07/01/15 12/10/24 History aerosol inhaler (ProAir HFA) inhalational spacing device (Space ##1 07/01/15 11/09/24 History Chamber Plus) Exam Const General: cooperative Neck Neck: supple Resp Effort & Inspection: normal respiratory effort Auscultation: clear to auscultation bilaterally Cardio Rate: regular rate Rhythm: regular rhythm GI Palpation: soft and no masses Neuro General: patient alert, patient awake and patient oriented x3 Results Last Vital Signs Temp 36.3 C L 12/10/24 06:22 Pulse 57 L 12/10/24 06:22 Resp 16 12/10/24 06:22 BP 108/64 12/10/24 06:22 Pulse Ox 98 12/10/24 06:22 Time Spent Time spent with Patient: <40 minutes Time was spent: other
--- NOTE | 2024-12-10 07:05 | ANES.PREOP_ITS ---
General Info Date of Service Date Performed: 12/10/24 Height: 5 ft 10 in Weight: 83 kg Body Mass Index (BMI): 26.2 Surgical Procedure: Operation Date: 12/10/24 07:40 Proposed Procedure Side Surgeon p Cystoscopy/Possible Urethral Dilation Chester Montes De Oca MD Actual Procedure Side Surgeon p Cystoscopy/Possible Urethral Dilation Not Applicable Chester Montes De Oca MD Pre-Op Diagnosis Post-Op Diagnosis (1) Hematuria: (2) Dysuria: (3) Bladder diverticulum: Meds Allergies and Home Medications Allergies Allergy/AdvReac Type Severity Reaction Status Date / Time venom-honey bee (bee venom Allergy Intermediate Anaphylaxis Verified 12/10/24 06:20 (honey bee)) Home Medication ?Medication ?Instructions ?Recorded epinephrine 0.3 mg/0.3 mL 0.3 mg IM ONCE ##1 06/21/15 injection, auto-injector (EpiPen 2-Erik) albuterol sulfate 90 mcg/actuation 2 puff inhalation Q4H PRN ##2 07/01/15 aerosol inhaler (ProAir HFA) inhalational spacing device (Space ##1 07/01/15 Chamber Plus) Current Visit Medications: Current Medications Generic Name Dose Route Start Last Admin Trade Name Freq PRN Reason Stop Dose Admin Ringer's Solution 1,000 mls @ 80 mls/hr 12/10/24 06:00 12/10/24 06:42 IV 12/10/24 23:59 80 mls/hr INFUSION ULYSSES Administration Cefazolin Sodium/Dextrose 2 gm in 50 mls @ 100 mls/hr 12/10/24 06:00 Ancef Duplex IVPB 12/10/24 23:59 PREOP ULYSSES IV Miscellaneous Supplies 1 each 12/10/24 06:00 Iv Access IV 12/10/24 23:59 DIRECTED ULYSSES Sodium Chloride 0 ml 12/10/24 06:00 Normal Saline Flush 10 Ml Syr IV 12/10/24 23:59 PRN PRN Sodium Chloride 0 ml 12/10/24 06:00 Normal Saline 10 Ml Vial IJ 12/10/24 23:59 DIRECTED PRN Sterile Water 0 ml 12/10/24 06:00 Water,Injection,Sterile 10 Ml Vial IJ 12/10/24 23:59 DIRECTED PRN PFSH Active Problems Active Problems: Problem Status Onset Code Lower urinary tract symptoms (LUTS) Acute R39.9 Bladder diverticulum Acute N32.3 Mass of soft tissue Acute M79.89 Testicular pain Acute N50.819 Headache, migraine Chronic G43.909 Medical History Medical History (Updated 12/10/24 @ 06:56 by Chester Montes De Oca MD) Intermittent asthma MRSA (methicillin resistant Staphylococcus aureus) Concussion no LOC Mononucleosis Surgical History Surgical History Repair, Incomplete Circumcision Excision, Skin Mass (~03/2009) excision atypical spitzoid melanoma Tobacco Smoking/Tobacco Use Status: Never Alcohol Alcohol Intake: current Alcohol intake frequency: a few times a month Substance Use Substance use: Occasionally Substance use type: marijuana Details: denies use last 24 hours Vital Signs and Lab Results Vital Signs Most Recent Vital Signs in EMR: Most Recent Vital Signs Temp Pulse Resp BP Pulse Ox 36.3 C L 57 L 16 108/64 98 12/10/24 06:22 12/10/24 06:22 12/10/24 06:22 12/10/24 06:22 12/10/24 06:22 Lab Results Blood Type / Crossmatch: 2 No Data to Display Complete Blood Count: 2 No Data to Display Complete Metabolic Panel: 2 No Data to Display Liver Function Panel: 2 No Data to Display Coagulation Panel: 2 No Data to Display Cardiac Panel: 2 No Data to Display Arterial Blood Gas: 2 No Data to Display Venous Blood Gas: 2 No Data to Display Pancreas Panel: 2 No Data to Display Thyroid Panel: 2 No Data to Display Infectious Disease: 2 No Data to Display Blood Cultures: 2 No Data to Display Toxicology Panel: 2 No Data to Display Anesthesia Assessment and Plan Anesthesia History Personal History: Awareness Under Anesthesia ([place] teeth extraction in dentists office) Family History: No Family History of Anesthesia Complications Exercise Tolerance Exercise Tolerance: Metabolic Equivalents>4 Pertinent Negatives Pertinent Negatives: No Symptoms of GERD, No Major Cardiovascular Symptoms or Complaints and No History of CVA/TIA Cardiac & Pulmonary Exam Cardiac Exam: Normal S1/S2 Heart Sounds Pulmonary Exam: Clear Bilateral Breath Sounds Implantable Cardiac Device Does patient have a Pacemaker or an ICD?: No Airway Exam Known Difficult Airway: No Mallampati Class: 2 Mouth Opening: Normal (> 3cm) Thyromental Distance: Greater than 3 cm Neck Range of Motion: Full ROM Neck Circumference: Normal Teeth Condition: Normal Dentition Tooth Numberin 1. indicated chipped tooth ASA Classification ASA Score: ASA 2 Emergency Case?: No NPO Status NPO Status: NPO Clears >2 hours, Solids >8 hours Anesthesia Plan Resuscitation Status: Full Code Anesthesia Technique: General Anesthesia Airway Planned: Natural Airway Monitors Used: Standard Monitors Preoperative Comments:: Asthma well controlled
[2024-12-10] MEDS: ceFAZolin 2 GM/50 ML BAG IVPB (07:40)
[2024-12-10] MEDS: Lidocaine 2% Jelly 6 ML SYR (07:46)
--- NOTE | 2024-12-10 07:53 | BLADDER_PTH ---
PATIENT: Marko Carnes LOC: [facility] U#:[id number] AGE/SX: 29/M ROOM: RE12/10/[address]: Chester Montes De Oca MD : 1995 BED: DIS: 12/10/2024 SPEC #: [id number] RECD: 12/10/24 12:45 STATUS: YANDEL REQ #: [id number] ASHER: 12/10/24 07:[address]: Chester Montes De Oca DEPT: Surgical Specimen RECD BY: Jina Marshall ENTERED: 12/10/24 12:46 SP TYPE: Bladder OTHR DR: Unknown,Unknown Tissues: 1 - BLADDER BIOPSY Procedures: SPECIAL STAIN 2 GROSS AND MICRO LEVEL 4 Comments: [id number]
--- NOTE | 2024-12-10 08:05 | W.PM.DSUDISC ---
Date of service: 12/10/24 Discharge Plan Disposition Patient Disposition: Home Condition: Stable Discharge Details Reason For Visit: cystoscopy Attending Provider: Chester Montes De Oca Primary Care Provider: Unknown,Unknown Home Meds and New Rx's Prescriptions: New ketorolac 10 mg tablet 10 mg PO Q8H PRN (Reason: pain) Qty: 12 0RF Rx Instructions: maximum total duration of 5 days from all oral, intranasal, or parenteral formulations No Action epinephrine [EpiPen 2-Erik] 0.3 MG/0.3 ML auto-injector 0.3 mg IM ONCE Qty: 1 Patient Comments: 12/08/24 pt. states he does not have an epi pen albuterol sulfate [ProAir HFA] 8.5 GM HFA aerosol inhaler 2 puff Inhalation Q4H PRN Qty: 2 Rx Instructions: 2 puffs with spacer every 4hr as needed (DME) Space Chamber Plus 1 EACH spacer 1 ea Miscellaneous Q4H PRN Qty: 1 Rx Instructions: give 2 puffs albuterol with spacer every 4hr as needed Discharge Instructions Additional Instructions: followup 1 to 2 weeks for pathology results Stand Alone Forms: Anesthesia Discharge Inst., [facility] Welch ([facility]) Activity:: Activity as Tolerated Shower/Bathe:: 24 hours Diet:: As Tolerated Discharge Orders Discharge Orders: Discharge Order (Routine); Ordered 12/10/24 Ordered By: Chester Montes De Oca DS: Diagnosis Discharge Diagnosis (1) Bladder diverticulum: Status: Acute (2) Lower urinary tract symptoms (LUTS): Status: Acute
--- NOTE | 2024-12-10 08:09 | W.PM.OP ---
Operative Note Operative Note PRE-OP DIAGNOSIS: lower urinary tract symptoms POST-OP DIAGNOSIS: same PROCEDURE: cystoscopy, biopsy of mucosa within bladder diverticulum SURGEON: Chester Montes De Oca ANESTHESIA TYPE: Local By Surgeon and General:No Airway Refer to Anesthesia Record ESTIMATED BLOOD LOSS: 5 PATHOLOGY: other (Bladder biopsy of mucosa within the diverticulum) COMPLICATIONS: None Patient was transported to: PACU Patient's condition: stable Implants: None Indications: This is a 29-year-old gentleman who has a history of culture proven urinary tract infection. He has had irritative lower urinary tract symptoms along with gross hematuria. We evaluated him with a CT urogram and we found a right-sided bladder diverticulum. It is not clear as to whether the diverticulum is a congenital finding or is due to high-pressure from bladder outlet obstruction. He presents for cystoscopy for evaluation. Findings: No urethral strictures Right-sided bladder diverticulum with erythematous mucosa seen within the diverticulum Procedure Description: The patient is given antibiotics and brought to the operating room on 12/10/2024. After successful induction of general anesthesia, he was placed in the dorsal lithotomy position. His genitalia was prepped and draped. 2% Xylocaine jelly was instilled into the urethra to act as a local anesthetic. A 22 [place] rigid cystoscope was passed through the urethra into the bladder. The urethra and bladder were inspected with the 30 degree lens. The pendulous, bulbar and membranous urethra's showed no significant strictured areas. The prostatic urethra appeared normal with no lateral lobe enlargement and no findings concerning for bladder neck hypertrophy. The bladder neck was entered and the bladder mucosa was inspected. The bladder was smooth-walled with no trabeculations. No erythema or bladder masses were seen in the main lumen of the bladder. On the patient's right side, a large mouth diverticulum was identified. I was able to pass my scope right into the diverticulum. There was a patch of erythematous mucosa in the diverticulum but no papillary or nodular masses. I biopsied the erythematous mucosa from inside the diverticulum using a cold cup biopsy forceps. We sent the biopsy to the lab for permanent section. I then cauterized the biopsy site using a bipolar Bugbee. The bladder was then emptied and the cystoscope was withdrawn. The patient tolerated this procedure well with no complications. Date of Procedure: 12/10/24
--- NOTE | 2024-12-10 08:42 | W.ANESPOSTOP ---
Postoperative Evaluation Date, Time and Location Date Performed: 12/10/24 Time Performed: 08:37 Patient Location: PACU Vital Signs Most Recent Imported Vital Signs: Most Recent Vital Signs Temp Pulse Resp BP Pulse Ox 36.2 C L 47 L 13 91/46 L 98 12/10/24 08:36 12/10/24 08:36 12/10/24 08:36 12/10/24 08:36 12/10/24 08:36 Pain Score Most Recent Pain Score: Most Recent Pain Score Pain Level 2 12/10/24 08:36 Assessment Mental Status: Awake (Alert & Oriented to Patient Baseline) Airway and Respiratory Function: Patent airway with normal (patient baseline) respiratory exam Cardiovascular Function: Hemodynamically Stable Hydration Status: Adequately Hydrated Nausea & Vomiting: No Nausea or Vomiting Pain: Pain is tolerable per patient Peripheral Nerve Block: Patient did not receive a nerve block
[2024-12-10] MEDS: Phenazopyridine 200 MG TAB PO (08:54)
== END 2024-12-10 09:47 | disposition home or self-care (01) ==
PROVIDERS: Visit Provider Urology
PROC: 0T7D8ZZ Dilation of Urethra, Via Natural or Artificial Opening Endoscopic (ICD-10-PCS; CPT 52281; principal; 2024-12-10 07:30)
DX: N32.3 Diverticulum of bladder (principal); R39.9 Unspecified symptoms and signs involving the genitourinary system; N32.89 Other specified disorders of bladder
CPT/HCPCS: 52204; 88305; 88313; J0131; J0690; J1885; J2250; J2704; J3010